=== PATIENT | female | born 1975 | race Caucasian/White ===

== ENCOUNTER → 2021-10-13 | Outpatient (CLI) | payer MEDICAID ==
[2021-10-13 11:22] LABS: BASO # 0.02 K/mm3 (0.02-0.10); EOS # 0.07 K/mm3 (0.04-0.40); EOS % 1.5 % (1.0-5.0); HEMATOCRIT 42.4 % (37.0-47.0); LYMPH# 0.86 K/mm3 (1.50-4.00); MEAN CELL VOLUME 97 fl (78-100); MEAN CORPUSCULAR HEMOGLOBIN 32 pg (27-31); MEAN CORPUSCULAR HGB CONC 33 g/dL (33-37); MONO # 0.42 K/mm3 (0.20-0.80); NEU # 3.29 K/mm3 (1.40-6.50); PLATELET COUNT 182 K/mm3 (130-400); RED BLOOD COUNT 4.37 M/mm3 (4.10-5.30); RED CELL DISTRIBUTION WIDTH 12.3 % (11.5-14.5); WHITE BLOOD COUNT 4.7 K/mm3 (4.8-10.8)
[2021-10-13 11:25] LABS: POTASSIUM 4.2 mmol/L (3.5-5.1); SODIUM 140 mmol/L (136-145)
[2021-10-13 11:26] LABS: ALBUMIN 4.2 g/dL (3.5-5.0)
[2021-10-13 11:27] LABS: CALCIUM 9.5 mg/dL (8.3-10.5)
[2021-10-13 11:28] LABS: GLUCOSE 88 mg/dL (65-105); TOTAL PROTEIN 7.7 g/dL (6.4-8.3)
[2021-10-13 11:29] LABS: CARBON DIOXIDE 24 mmol/L (22-29)
[2021-10-13 11:30] LABS: TOTAL BILIRUBIN 0.6 mg/dL (0.2-1.2)
[2021-10-13 11:33] LABS: AST-SGOT 21 U/L (5-34)
[2021-10-13 11:35] LABS: ALT/SGPT 22 U/L (0-55)
[2021-10-13 12:42] LABS: ERYTHROCYTE SEDIMENTATION RATE 22 mm/hr (0-20)
[2021-10-13 23:13] LABS: FOLLICLE STIMULATING HORMONE 5.2 mIU/mL (()); LUTENIZING HORMONE 3.6 mIU/mL (()); PROGESTERONE 0.2 ng/mL (()); T3 FREE 2.4 pg/mL (1.7-3.7)
[2021-10-15 06:38] LABS: ALTERNARIA TENUIS CNT <0.10 kU/L (()); ASPERGILLUS FUMIGATUS AL COUNT <0.10 kU/L (()); BERMUDA GRASS ALLERGEN COUNT <0.10 kU/L (()); BOX ELDER-MAPLE ALLERGEN COUNT <0.10 kU/L (()); CAT DANDER ALLERGEN COUNT <0.10 kU/L (()); CLADOSPORIUM ALLERGEN COUNT <0.10 kU/L (()); COCKROACH ALLERGEN COUNT 0.19 kU/L (()); CODFISH ALLERGEN COUNT <0.10 kU/L (()); COTTONWOOD TREE ALLERGEN COUNT 0.82 kU/L (()); DOG DANDER ALLERGEN COUNT <0.10 kU/L (()); DUST MITES (D.F.) ALLERG COUNT 0.42 kU/L (()); DUST MITES (D.P.) ALLERG COUNT 0.41 kU/L (()); EGG WHITE ALLERGEN COUNT <0.10 kU/L (()); FIREBUSH ALLERGEN COUNT <0.10 kU/L (()); MILK ALLERGEN COUNT <0.10 kU/L (()); OAK ALLERGEN COUNT <0.10 kU/L (()); PEANUT ALLERGEN COUNT <0.10 kU/L (()); ROUGH MARSH ELDER ALLERG COUNT <0.10 kU/L (()); RUSSIAN THISTLE ALLERGEN COUNT <0.10 kU/L (()); SHORT RAGWEED ALLERGEN COUNT 6.11 kU/L (()); SOYBEAN ALLERGEN COUNT <0.10 kU/L (()); WHEAT ALLERGEN COUNT <0.10 kU/L (())
[2021-10-16 06:29] LABS: ELM TREE ALLERGEN COUNT <0.10 kU/L (())
[2021-10-18 01:14] LABS: VITAMIN B1 178 nmol/L (70-180)
== END ==
LOC: LAB 10:30
PROVIDERS: Family Medicine
DX: Z00.00 Encounter for general adult medical examination without abnormal findings (principal); E56.9 Vitamin deficiency, unspecified; N91.1 Secondary amenorrhea; E03.9 Hypothyroidism, unspecified; R53.83 Other fatigue; J30.2 Other seasonal allergic rhinitis; E78.5 Hyperlipidemia, unspecified

== ENCOUNTER → 2023-01-04 | Outpatient (CLI) | payer MEDICAID ==
[2023-01-04 14:51] LABS: BASO # 0.03 K/mm3 (0.02-0.10); EOS # 0.04 K/mm3 (0.04-0.40); EOS % 0.7 % (1.0-5.0); HEMATOCRIT 41.3 % (37.0-47.0); HEMOGLOBIN 13.9 g/dL (12.5-16.0); LYMPH# 0.89 K/mm3 (1.50-4.00); MEAN CELL VOLUME 98 fl (78-100); MEAN CORPUSCULAR HEMOGLOBIN 33 pg (27-31); MEAN CORPUSCULAR HGB CONC 34 g/dL (33-37); MONO # 0.41 K/mm3 (0.20-0.80); NEU # 4.34 K/mm3 (1.40-6.50); PLATELET COUNT 187 K/mm3 (130-400); RED BLOOD COUNT 4.21 M/mm3 (4.10-5.30); RED CELL DISTRIBUTION WIDTH 11.9 % (11.5-14.5); WHITE BLOOD COUNT 5.7 K/mm3 (4.8-10.8)
[2023-01-04 22:35] LABS: LUTENIZING HORMONE 8.7 mIU/mL (()); PROGESTERONE 0.1 ng/mL (()); TESTOSTERONE 21 ng/dL (14-53)
[2023-01-07 10:14] LABS: VITAMIN B1 183.6 nmol/L (())
[2023-01-08 17:12] LABS: BAKERS YEAST ALLERGEN COUNT <0.10 kU/L (Class 0); CORN ALLERGEN COUNT <0.10 kU/L (Class 0); EGG WHITE ALLERGEN COUNT <0.10 kU/L (Class 0); MILK ALLERGEN COUNT <0.10 kU/L (Class 0); ORANGE ALLERGEN COUNT <0.10 kU/L (Class 0); PEANUT ALLERGEN COUNT <0.10 kU/L (Class 0); RICE ALLERGEN COUNT <0.10 kU/L (Class 0); SOYBEAN ALLERGEN COUNT <0.10 kU/L (Class 0); STRAWBERRY ALLERGEN COUNT <0.10 kU/L (Class 0); TOMATO ALLERGEN COUNT <0.10 kU/L (Class 0); WHEAT ALLERGEN COUNT <0.10 kU/L (Class 0)
== END ==
LOC: LAB 14:10
PROVIDERS: Family Medicine
DX: F41.9 Anxiety disorder, unspecified (principal); J45.909 Unspecified asthma, uncomplicated; M79.7 Fibromyalgia; N92.1 Excessive and frequent menstruation with irregular cycle; E56.9 Vitamin deficiency, unspecified; E55.9 Vitamin D deficiency, unspecified

== ENCOUNTER → 2024-06-28 | Outpatient (CLI) | payer MEDICAID | LOC: AMSURD 12:26 | DX: R07.9 Chest pain, unspecified (principal) ==